=== PATIENT | male | born 1950 | race Caucasian/White ===

== ENCOUNTER → 2017-04-11 | Outpatient (CLI) | payer MEDICARE ==
[~2017-04-11] MED LIST: KEFLEX 500MG.500 MG PO; LORTAB 5/500 501 TAB PO
[2017-04-11 07:58] LABS: HEMOGLOBIN 16.3 g/dL (14.1-18.0); LYMPH # 1.4 K/mm3 (0.7-4.5); LYMPH % 25.6 % (10-50)
[2017-04-11 10:04] LABS: BUN 16 mg/dL (7-18); GFR (ESTIMATED) 85 ML/MIN (>60); PROSTATE-SPECIFIC AG SCREEEN 5.4 ng/mL (0.0-4.0)
== END ==
LOC: LAB 07:33
PROVIDERS: Internal Medicine Adolescent Medicine
DX: R97.20 Elevated prostate specific antigen [PSA] (principal); N40.1 Benign prostatic hyperplasia with lower urinary tract symptoms; I10 Essential (primary) hypertension; Z12.5 Encounter for screening for malignant neoplasm of prostate
CPT/HCPCS: G0103